=== PATIENT | female | born 1955 | race Caucasian/White ===

== ENCOUNTER 2021-09-18 16:41 | Emergency (ER) | payer MEDICARE, OTHER, SELFPAY ==
[2021-09-18] VITALS (21 sets, daily range): BP systolic 107–143; BP diastolic 56–102; PULSE 63–83; RESP 7–27; TEMP 36.4; O2SAT 92–100
--- NOTE | ~2021-09-18 | CT_ITS ---
EXAMINATION: CT brain wo con EXAM DATE: 09/18/2021 17:28 INDICATION: Fall, right sided head injury, pain . TECHNIQUE: Spiral CT of the head was performed without contrast. Axial, coronal and sagittal images were reviewed. The dose-length product (DLP) for this examination was 681.00 mGy-cm. The exposure w as tailored according to patient size, and iterative reconstruction (ASIR) was used as additional dos e reduction technique. There is no prior study for comparison. FINDINGS: There is no acute intraparenchymal hemorrhage. No evidence of intraparenchymal brain mass lesion. No evidence of acute infarction. Please note that initial head CT has limited sensitivity f or small or acute infarctions. There is mild periventricular and subcortical hypodensity, nonspecific but probably related to small vessel ischemic disease. There is mild prominence of the sulci and v entricles related to cerebral atrophy. There is intracranial carotid arteriosclerosis. There are n o extra-axial collections. There is no mass effect or midline shift. Patient has had bilateral ocul ar lens surgery. Soft tissue is unremarkable. The visualized sinuses and mastoid air cells are well aerated. IMPRESSION: 1. No acute intracranial findings. 2. Chronic age related findings. Reviewed, dictated and finalized at location G. TRICAL CONTINUITY INSPECTOR
--- NOTE | ~2021-09-18 | CT_ITS ---
EXAMINATION: CT facial & cervical spine wo EXAM DATE: 09/18/2021 17:28 INDICATION: Fall, head injury. TECHNIQUE: Spiral CT of the facial bones was acquired in the axial plane. Coronal reformatted images were also reviewed. Spiral CT of the cervical spine was performed without contrast. Axial images we re reviewed. Coronal and sagittal reformatted images were also reviewed. The dose-length product (DL P) for this examination was 520.31 mGy-cm. The exposure was tailored according to patient size, and iterative reconstruction (ASIR) was used as additional dose reduction technique. There is no prior s tudy for comparison. FINDINGS: FACIAL CT: There are no displaced acute nasal bone fractures. The mandible, sinuses and orbits are i ntact. The orbits, globes and extraocular muscles are unremarkable. The visualized sinuses and ma stoid air cells are well aerated. Right-sided zainab bullosa. Mild nasal septal deviation. CERVICAL CT: There is no evidence of acute cervical fracture. The odontoid process is intact. Pre-d ens space is normal. Prevertebral soft tissue is normal. There are no soft tissue abnormalities leeanna ntified. There is no disc space widening or traumatic vertebral body subluxation suspected. There i s moderate to severe disc disease from C4-7. A detailed level by level evaluation of spondylosis can be added as addendum if requested. IMPRESSION: 1. No acute facial or cervical fracture. 2. Moderate to severe cervical disc disease, mild to moderate arthropathy. Reviewed, dictated and finalized at location G. LER STEERER
--- NOTE | 2021-09-18 17:00 | PC.NURSE ---
Dr. Reid at bedside to assess patient.
--- NOTE | 2021-09-18 17:19 | ED.FALL ---
HPI - Fall General Chief Complaint: Fall Stated Complaint: Fall, Hit Face Time Seen by Provider: 09/18/21 16:47 Source: patient Mode of arrival: EMS Limitations: no limitations History of Present Illness HPI Narrative: Patient is a 66-year-old female complaining of head and facial pain after she fell while trying to lean over to roll picker her dog from her electric scooter. Patient cannot recall if she lost consciousness or not. Patient denies any neck, chest, abdomen, back, pelvis, hip or any extremity pain/injury. Patient denies any symptoms prior to the fall. Patient states that she currently takes Eliquis. Related Data Home Medications Medication Instructions Recorded Confirmed apixaban [Eliquis] 5 mg PO BID 09/18/21 09/18/21 aspirin 81 mg PO DAILY 09/18/21 09/18/21 atorvastatin 80 mg PO DAILY 09/18/21 09/18/21 furosemide [Lasix] 20 mg PO DAILY 09/18/21 09/18/21 gabapentin 300 mg PO TID 09/18/21 09/18/21 levothyroxine 200 mcg PO DAILY 09/18/21 09/18/21 metoprolol tartrate 25 mg PO DAILY 09/18/21 09/18/21 zcyipydtesvb-qrq-kfef-FA-vit K tablet PO 09/18/21 [Adults Multivitamin] spironolactone 12.5 mg PO DAILY 09/18/21 09/18/21 trazodone 100 mg PO HS 09/18/21 09/18/21 Allergies Allergy/AdvReac Type Severity Reaction Status Date / Time aspirin Allergy Unknown Verified 11/08/08 11:56 codeine Allergy Unknown Verified 11/08/08 11:56 erythromycin base Allergy Unknown Verified 11/08/08 11:56 Contrast Media Allergy Unknown Uncoded 07/26/03 15:14 Review of Systems Review of Systems: All systems reviewed & are unremarkable except as noted in HPI and below Constitutional: Constitutional: Denies body ache(s), Denies chills, Denies excessive sweating, Denies fatigue, Denies fever(s), Denies headache(s), Denies lethargy, Denies malaise, Denies weakness and Denies weight loss Eyes: Eyes: Denies blurry vision, Denies change in vision and Denies loss of vision ENT: Denies dizziness, Denies ear discharge, Denies headache(s), Denies lip swelling, Denies epistaxis, Denies nasal congestion, Denies neck pain, Denies throat swelling and Denies tongue swelling Cardiovascular: Cardiovascular: Denies chest pain, Denies chest pain at rest, Denies chest pain with activity, Denies diaphoresis, Denies rapid heart rate, Denies edema, Denies irregular heart rhythm, Denies lightheadedness, Denies palpitations, Denies dyspnea and Denies dyspnea on exertion Respiratory: Respiratory: Denies chest congestion, Denies cough, Denies hemoptysis, Denies dyspnea and Denies dyspnea on exertion Gastrointestinal: Gastrointestinal: Denies abdominal pain, Denies melena, Denies hematochezia, Denies diarrhea, Denies nausea, Denies vomiting and Denies hematemesis Musculoskeletal: Musculoskeletal: Denies abnormal gait, Denies deformity, Denies joint swelling, Denies limited range of motion, Denies neck pain and Denies numbness Neurologic: Denies Abnormal speech present, Denies abnormal gait, Denies confusion, Denies dizziness, Denies focal weakness, Denies loss of vision, Denies numbness, Denies Other visual disturbances, Denies Sensory deficit (Neuro) and Denies weakness Psychiatric: Psychiatric: Denies confusion, Denies depression, Denies auditory hallucinations, Denies homicidal ideation and Denies suicidal ideation Endocrine: Endocrine: Denies cold intolerance, Denies excessive sweating, Denies fatigue, Denies heat intolerance and Denies palpitations Hematologic/Lymphatic: Hematologic/Lymphatic: Denies easy bleeding and Denies easy bruising Allergic/Immunologic: Allergic/Immunologic: Denies lip swelling, Denies throat swelling and Denies tongue swelling PMFSH Comments Past medical history: Hypertension, COPD, atrial fib Family history: Hypertension Social history: Non-smoker no EtOH or drug use Exam Const: General: cooperative, healthy appearing, comfortable, no acute distress, well developed, alert and awake; No confusion Orientation/consciousness: oriente
--- NOTE | 2021-09-18 17:22 | PC.NURSE ---
Patient transported off unit to Radiology.
[2021-09-18] MEDS: HYDROcodone/acetaminophen (*CRX) 5-325 MG TABLET 1 TAB PO (18:37)
--- NOTE | 2021-09-18 19:13 | PC.NURSE ---
Patient report given to ZUNILDA Smallwood. All questions answered and care of patient transferred.
== END 2021-09-18 19:53 | disposition home or self-care (01) ==
PROVIDERS: Emergency Provider Emergency Medicine
DX: S09.90XA Unspecified injury of head, initial encounter (principal); S00.81XA Abrasion of other part of head, initial encounter; I10 Essential (primary) hypertension; I48.91 Unspecified atrial fibrillation; J44.9 Chronic obstructive pulmonary disease, unspecified; Z79.82 Long term (current) use of aspirin; Z79.01 Long term (current) use of anticoagulants; W05.2XXA Fall from non-moving motorized mobility scooter, initial encounter
CPT/HCPCS: 70450; 70486; 72125; 99284; A9270

== ENCOUNTER 2021-11-19 11:14 | Emergency (ER) | payer MEDICARE, OTHER, SELFPAY ==
--- NOTE | ~2021-11-19 | XR_ITS ---
EXAMINATION: XR ankle LT min 3V DATE: 11/19/2021 11:47 INDICATION: Left ankle pain. Fall. TECHNIQUE: 4 views of left ankle were obtained. COMPARISON: None. FINDINGS: There is a healed calcaneal osteotomy with plate and screw fixation. There are 2 suture anc hors in distal fibula. There is a plate and screws in first metatarsal. No acute fracture. There is m ild osteoarthritis of talonavicular joint. There is an osteochondral lesion of lateral talar dome. Th ere are enthesophytes at the posterior and plantar aspects of calcaneal tuberosity. Ankle soft tissue swelling is noted. IMPRESSION: 1. Polyarticular osteoarthritis. Reviewed, dictated and finalized at location A.
--- NOTE | ~2021-11-19 | XR_ITS ---
XR foot LT min 3V DATE: 11/19/2021 12:35 INDICATION: Fall 3 days ago. Swelling and tenderness along lateral metatarsal area TECHNIQUE: 4 views COMPARISON: None FINDINGS: Dorsal first metatarsal plate secured by anteroposteriorly directed screws. Status post calcaneal osteotomy with plate and 2 screws. Two anchor devices are noted in the lateral malleolus. Plantar and posterior calcaneal enthesopathy. Dorsal soft tissue swelling of the forefoot. No fracture or dislocation, periosteal reaction or bone destruction is detected. IMPRESSION: Postoperative changes Dorsal soft tissue swelling of forefoot No recent fracture or dislocation Reviewed, dictated and finalized at location A.
[2021-11-19 11:23] VITALS: BP 126/74; PULSE 80; RESP 16; TEMP 36.2; O2SAT 99
--- NOTE | 2021-11-19 12:19 | ED.LOWEXIN ---
HPI - Extremity Injury (Lower) General Chief Complaint: Extremity Injury, Lower Stated Complaint: pain in left foot Time Seen by Provider: 11/19/21 12:09 Source: patient Mode of arrival: ambulatory Limitations: no limitations History of Present Illness HPI Narrative: Patient is 66-year-old female who presents the ED with report of left ankle and foot pain. Patient reports she tripped and fell on Thursday, landing on her bilateral knees. She felt like her left ankle twisted backwards and flexed when she fell. She denies have any further pain in her knees, but does complain of pain in her left ankle and left foot. She has been able to ambulate but it is painful and she bears most weight on her right side. No numbness tingling, wounds, weakness. No other injuries. No back pain, hip pain. No prodromal symptoms prior to fall. Related Data Home Medications Medication Instructions Recorded Confirmed apixaban [Eliquis] 5 mg PO BID 09/18/21 09/18/21 aspirin 81 mg PO DAILY 09/18/21 09/18/21 atorvastatin 80 mg PO DAILY 09/18/21 09/18/21 furosemide [Lasix] 20 mg PO DAILY 09/18/21 09/18/21 gabapentin 300 mg PO TID 09/18/21 09/18/21 levothyroxine 200 mcg PO DAILY 09/18/21 09/18/21 metoprolol tartrate 25 mg PO DAILY 09/18/21 09/18/21 wlzljnmtfacz-xeb-xhwf-FA-vit K tablet PO 09/18/21 [Adults Multivitamin] spironolactone 12.5 mg PO DAILY 09/18/21 09/18/21 trazodone 100 mg PO HS 09/18/21 09/18/21 Allergies Allergy/AdvReac Type Severity Reaction Status Date / Time codeine Allergy Unknown Unknown Verified 11/19/21 11:41 erythromycin base Allergy Unknown Unknown Verified 11/19/21 11:41 hydrochlorothiazide Allergy Unknown Verified 11/19/21 11:41 Contrast Media Allergy Unknown Unknown Uncoded 11/19/21 11:41 Review of Systems Review of Systems: CONSTITUTIONAL: Denies fever. CARDIOVASCULAR: Denies chest pain. RESPIRATORY: Denies dyspnea. SKIN: Denies wounds. MUSCULOSKELETAL: Reports pain to L ankle/foot. Denies back pain, hip pain, knee pain. NEUROLOGIC: Denies numbness, tingling, or weakness. All systems reviewed & are unremarkable except as noted in HPI and below PMFSH Past Medical History Medical History (Updated 11/19/21 @ 12:59 by Abimbola Rankin PA-C) History of CVA (cerebrovascular accident) Hyperlipidemia Hypertension Hypothyroidism Surgical History Surgical History (Updated 11/19/21 @ 12:24 by Abimbola Rankin PA-C) History of foot surgery Social History Social History (Updated 11/19/21 @ 12:24 by Abimbola Rankin PA-C) Smoking status: Never smoker Exam Narrative: GENERAL: Well appearing, well-nourished, non-toxic, in no acute distress. HEAD: Normocephalic, atraumatic. RESPIRATORY: Airway patent, respirations nonlabored. Clear to auscultation bilaterally, no rales, rhonchi, wheezing. CARDIOVASCULAR: Regular rate and rhythm without murmurs, rubs, or gallops. Pedal pulses 2+ and equal bilaterally. MUSCULOSKELETAL: Moves all extremities. Limited range of motion of left ankle due to pain. Diffuse swelling to left ankle, most around lateral malleolus. Slight ecchymosis forming around inferior lateral malleolus. Tenderness to palpation of left fifth metatarsal lateral edge, lateral malleolus, and distal fibula. No gross deformities. No edema. SKIN: Warm, dry, normal color. No rashes. NEURO: A&O X3. Speech clear. Cranial nerves II-XII grossly intact. Steady gait. No ataxic movements. PSYCHIATRIC: Appropriate mood and affect. Normal interaction. Course Vital Signs Vital signs: Vital Signs Temperature 97.2 F L 11/19/21 11:23 Pulse Rate 80 11/19/21 11:23 Respiratory Rate 16 11/19/21 11:23 Blood Pressure 126/74 11/19/21 11:23 Pulse Oximetry 99 11/19/21 11:23 Temperature 97.2 F L 11/19/21 11:23 Pulse Rate 80 11/19/21 11:23 Respiratory Rate 16 11/19/21 11:23 Blood Pressure 126/74 11/19/21 11:23 Pulse Oximetry 99 11/19/21 11:23 MDM - Extremity Injury (Lower) MDM Narrativ
== END 2021-11-19 13:12 | disposition home or self-care (01) ==
PROVIDERS: Emergency Provider Emergency Medicine
DX: S93.402A Sprain of unspecified ligament of left ankle, initial encounter (principal); E78.5 Hyperlipidemia, unspecified; I10 Essential (primary) hypertension; E03.9 Hypothyroidism, unspecified; Z86.73 Personal history of transient ischemic attack (TIA), and cerebral infarction without residual deficits; Z79.899 Other long term (current) drug therapy; Z79.82 Long term (current) use of aspirin; Z79.01 Long term (current) use of anticoagulants; Z88.1 Allergy status to other antibiotic agents; Z91.041 Radiographic dye allergy status; Z88.5 Allergy status to narcotic agent; W18.30XA Fall on same level, unspecified, initial encounter
CPT/HCPCS: 73610; 73630; 99283

== ENCOUNTER 2022-03-03 09:43 | Emergency (ER) | payer MEDICARE, OTHER, SELFPAY ==
--- NOTE | ~2022-03-03 | XR_ITS ---
EXAMINATION: XR ribs RT 2V w CXR 2V DATE: 03/03/2022 10:31 INDICATION: Right chest pain. Fall. TECHNIQUE: Frontal and lateral views of the chest and 2 views on 3 radiographs of the right ribs were obtained. COMPARISON: Chest single view 03/03/2018 FINDINGS: CHEST TWO VIEWS: There is mild atelectasis at right lung base. No pleural effusion or pneumothorax. T he heart size is normal. There is a left chest wall pacer with leads in the right atrium and right ve ntricle. Surgical clips in the right upper quadrant are likely from cholecystectomy. RIGHT RIBS: There are fractures of right 8th-10th ribs. IMPRESSION: 1. Acute fractures of right 8th-10th ribs. Reviewed, dictated and finalized at location A.
--- NOTE | ~2022-03-03 | CT_ITS ---
EXAMINATION: CT BRAIN W/O DATE: 03/03/2022 10:17 INDICATION: Head injury. Patient on aliquots. TECHNIQUE: Computed tomography (CT) of the head was performed without intravenous contrast. The dose- length product was 681.00 mGy-cm. COMPARISON: No prior studies for comparison. FINDINGS: Normal brain parenchymal volume for age. Normal del angel-white differentiation. No acute intrac ranial hemorrhage, infarction, mass or mass effect. No ventriculomegaly or midline shift. Midline sagittal images demonstrate a normal corpus callosum, c raniovertebral junction and sella turcica. Basilar cisterns are patent. Paranasal sinuses and mastoids are pneumatized. No depressed skull fractures. There is mild intracran ial atherosclerosis. Small scalp hematoma at the left parietal vertex. IMPRESSION: 1. No acute intracranial abnormality. Reviewed, dictated and finalized at location A.
--- NOTE | ~2022-03-03 | CT_ITS ---
EXAMINATION: CT cervical spine wo con DATE: 03/03/2022 10:16 INDICATION: Neck pain. Fall. TECHNIQUE: Computed tomography (CT) of the cervical spine was performed without intravenous contrast. Automated exposure control and iterative reconstruction technique were employed. The dose-length pro duct was 429.28 mGy-cm. COMPARISON: CT cervical spine 09/18/2021 FINDINGS: There are small bilateral mastoid effusions. There is 3 degrees dextrocurvature of cervical spine. Vertebral body heights are normal. There is moderate to severely decreased disc height from C 4-C5 through C6-C7. The following disc levels are specifically discussed: C2-C3: There is no uncovertebral joint osteoarthritis. There is mild left facet joint osteoarthritis. There is no neural foraminal stenosis. There is no central canal stenosis. C3-C4: There is mild left uncovertebral joint osteoarthritis. There is mild bilateral facet joint ost eoarthritis. There is no neural foraminal stenosis. There is mild central canal stenosis. C4-C5: There is severe bilateral uncovertebral joint osteoarthritis. There is mild bilateral facet jevon int osteoarthritis. There is mild bilateral neural foraminal stenosis. There is mild central canal st enosis. C5-C6: There is severe bilateral uncovertebral joint osteoarthritis. There is mild right and moderate left facet joint osteoarthritis. There is mild bilateral neural foraminal stenosis. There is mild ce ntral canal stenosis. C6-C7: There is moderate right and severe left uncovertebral joint osteoarthritis. There is moderate bilateral facet joint osteoarthritis. There is mild bilateral neural foraminal stenosis. There is mil d central canal stenosis. C7-T1: There is no uncovertebral joint osteoarthritis. There is mild bilateral facet joint osteoarthr itis. There is no neural foraminal stenosis. There is no central canal stenosis. IMPRESSION: 1. No fracture. 2. Severe cervical spondylosis. Reviewed, dictated and finalized at location A.
[2022-03-03 09:50] VITALS: BP 151/62; PULSE 63; RESP 18; TEMP 36.4; O2SAT 96
--- NOTE | 2022-03-03 09:55 | ED.GENADULT ---
HPI - General Adult General Chief complaint: Fall Stated complaint: Fall, Hit head takes blood thinner Time Seen by Provider: 03/03/22 09:48 History of Present Illness HPI narrative: Patient is a 66-year-old female that presents the emergency department with chief complaint of fall. The patient reports she was walking up some steps approximately 3 total steps and was opening a door the patient states she lost her footing fell forward struck her head against the wall and hit the right side of her chest whenever she fell. Patient reports no loss of consciousness reports no focal neurological deficit the patient does report that she is on Eliquis and reports that initially she was feeling okay and then as the minutes have progressed since the fall she started having pain in the right side of her chest worse with inspiration patient states she also has pain with breathing. The patient states that she is concerned because she is on blood thinners and decided to come to the emergency department. The patient reports no pain in her extremities full range of motion all extremities denies abdominal pain. Related Data Home Medications Medication Instructions Recorded Confirmed apixaban 5 mg tablet (Eliquis) 5 mg PO BID 09/18/21 09/18/21 aspirin 81 mg tablet 81 mg PO DAILY 09/18/21 09/18/21 atorvastatin 80 mg tablet 80 mg PO DAILY 09/18/21 09/18/21 furosemide 20 mg tablet (Lasix) 20 mg PO DAILY 09/18/21 09/18/21 gabapentin 300 mg tablet 300 mg PO TID 09/18/21 09/18/21 levothyroxine 200 mcg capsule 200 mcg PO DAILY 09/18/21 09/18/21 metoprolol tartrate 25 mg tablet 25 mg PO DAILY 09/18/21 09/18/21 multivit with minerals-iron 18 tablet PO 09/18/21 mg-folic ac 400 mcg-vit K 25 mcg tablet (Adults Multivitamin) spironolactone 25 mg tablet 12.5 mg PO DAILY 09/18/21 09/18/21 trazodone 100 mg tablet 100 mg PO HS 09/18/21 09/18/21 Allergies Allergy/AdvReac Type Severity Reaction Status Date / Time codeine Allergy Unknown Unknown Verified 03/03/22 10:41 erythromycin base Allergy Unknown Unknown Verified 03/03/22 10:41 hydrochlorothiazide Allergy Unknown Verified 03/03/22 10:41 Contrast Media Allergy Unknown Unknown Uncoded 03/03/22 10:41 Review of Systems Review of Systems: A 10 system review of systems was completed on the patient and is negative except for what is stated in the HPI. Nursing and ancillary documentation was reviewed. PMFSH Past Medical History Medical History History of CVA (cerebrovascular accident) Hyperlipidemia Hypertension Hypothyroidism Surgical History Surgical History History of foot surgery Social History Social History Smoking status: Never smoker Exam Narrative: GENERAL: Well-appearing, well-nourished, and in no acute distress. HEAD: Normocephalic, atraumatic. EYES: PERRLA and EOMI. ENT: Nares clear, no rhinorrhea or epistaxis. Mucous membranes moist. NECK: Supple. CHEST: Clear to auscultation. No respiratory distress. Tenderness to palpation of the right chest wall HEART: Regular rate and rhythm. No murmur heard. Normal peripheral pulses. ABDOMEN: Soft, nontender, nondistended, normal active bowel sounds. EXTREMITIES: Normal range of motion. No edema. SKIN: Warm, dry, no rash. NEURO: No focal deficits. Alert and oriented x3. PSYCH: Normal mood and affect. Course Vital Signs Vital signs: Vital Signs Temperature 36.4 C 03/03/22 09:50 Pulse Rate 63 03/03/22 09:50 Respiratory Rate 18 03/03/22 09:50 Blood Pressure 151/62 H 03/03/22 09:50 Pulse Oximetry 96 03/03/22 09:50 Oxygen Delivery Room Air 03/03/22 09:50 Temperature 36.4 C 03/03/22 09:50 Pulse Rate 63 03/03/22 09:50 Respiratory Rate 18 03/03/22 09:50 Blood Pressure 151/62 H 03/03/22 09:50 Pulse Oximetry 96 08
[2022-03-03] MEDS: MORPHINE SULFATE (*CRX) 4 MG/ML INJ IV PUSH (10:44)
[2022-03-03 11:12] VITALS: O2SAT 95
[2022-03-03 11:15] VITALS: O2SAT 93
[2022-03-03 11:17] VITALS: BP 133/62; O2SAT 96
[2022-03-03 11:33] VITALS: O2SAT 96
== END 2022-03-03 11:50 | disposition home or self-care (01) ==
PROVIDERS: Emergency Provider Emergency Medicine
DX: S09.90XA Unspecified injury of head, initial encounter (principal); S22.41XA Multiple fractures of ribs, right side, initial encounter for closed fracture; I10 Essential (primary) hypertension; E03.9 Hypothyroidism, unspecified; Z86.73 Personal history of transient ischemic attack (TIA), and cerebral infarction without residual deficits; Z79.01 Long term (current) use of anticoagulants; Z79.82 Long term (current) use of aspirin; M47.812 Spondylosis without myelopathy or radiculopathy, cervical region; W10.9XXA Fall (on) (from) unspecified stairs and steps, initial encounter
CPT/HCPCS: 70450; 71046; 71100; 72125; 96374; 99284; J2270

== ENCOUNTER 2022-06-18 16:30 | Emergency (ER) | payer MEDICARE, OTHER, SELFPAY ==
--- NOTE | ~2022-06-18 | XR_ITS ---
EXAM: XR hand LT min 3V DATE: 06/18/2022 17:29 HISTORY: crush injury to 3rd proximal finger . COMPARISON: None available. FINDINGS: Normal mineralization. No fracture or dislocation. No lytic or blastic lesion. Joint space s are maintained. No erosion or periosteal change. Soft tissues within normal limits. IMPRESSION: No acute osseous finding in the left hand. Reviewed, dictated and finalized at location K. AD SUPERVISOR
[2022-06-18 16:43] VITALS: BP 109/81; PULSE 78; RESP 20; TEMP 37.2; O2SAT 97
--- NOTE | 2022-06-18 20:34 | ED.WOUNDLAC ---
HPI - Wound/Laceration General Chief Complaint: Wound/Laceration Stated Complaint: shut left hand in house door Time Seen by Provider: 06/18/22 19:45 Source: patient Mode of arrival: ambulatory Limitations: no limitations History of Present Illness HPI narrative: Patient is a 67-year-old female who presents to the ED with report of left hand injury. Patient reports she accidentally slammed her left hand in a heavy metal house door. She sustained a small laceration to her left third digit flexor surface. No other injuries. No numbness, tingling. Tetanus status up-to-date. Patient is on eliquis. Related Data Home Medications Medication Instructions Recorded Confirmed apixaban 5 mg tablet (Eliquis) 5 mg PO BID 09/18/21 09/18/21 aspirin 81 mg tablet 81 mg PO DAILY 09/18/21 09/18/21 atorvastatin 80 mg tablet 80 mg PO DAILY 09/18/21 09/18/21 furosemide 20 mg tablet (Lasix) 20 mg PO DAILY 09/18/21 09/18/21 gabapentin 300 mg tablet 300 mg PO TID 09/18/21 09/18/21 levothyroxine 200 mcg capsule 200 mcg PO DAILY 09/18/21 09/18/21 metoprolol tartrate 25 mg tablet 25 mg PO DAILY 09/18/21 09/18/21 multivit with minerals-iron 18 tablet PO 09/18/21 mg-folic ac 400 mcg-vit K 25 mcg tablet (Adults Multivitamin) spironolactone 25 mg tablet 12.5 mg PO DAILY 09/18/21 09/18/21 trazodone 100 mg tablet 100 mg PO HS 09/18/21 09/18/21 Allergies Allergy/AdvReac Type Severity Reaction Status Date / Time codeine Allergy Unknown Unknown Verified 03/03/22 10:41 erythromycin base Allergy Unknown Unknown Verified 03/03/22 10:41 hydrochlorothiazide Allergy Unknown Verified 03/03/22 10:41 Contrast Media Allergy Unknown Unknown Uncoded 03/03/22 10:41 Review of Systems Review of Systems: CONSTITUTIONAL: Denies fever, chills, or sweats. SKIN: Reports laceration to proximal left third digit flexor surface. NEUROLOGIC: Denies tingling, numbness, or weakness. All systems reviewed & are unremarkable except as noted in HPI and below PMFSH Past Medical History Medical History History of CVA (cerebrovascular accident) Hyperlipidemia Hypertension Hypothyroidism Surgical History Surgical History History of foot surgery Social History Social History Smoking status: Never smoker Exam Narrative: GENERAL: Well appearing, obese, non-toxic, in no acute distress. HEAD: Normocephalic, atraumatic. NECK: Supple. No adenopathy, no masses. RESPIRATORY: Airway patent, respirations nonlabored. CARDIOVASCULAR: Regular rate and rhythm without murmurs, rubs, or gallops. Radial pulses 2+ and equal bilaterally. MUSCULOSKELETAL: Moves all extremities. Strength/ROM intact without gross deformities. Minimal limited range of motion of left fingers due to swelling. Flexor tendons intact. No tenderness along flexor tendons. SKIN: Warm, dry, normal color. No rashes. Approximately 2 cm curvilinear laceration to flexor surface of left third digit, just proximal to PIP joint. NEURO: A&O X3. Speech clear. Cranial nerves II-XII grossly intact. Steady gait. No ataxic movements. PSYCHIATRIC: Appropriate mood and affect. Normal interaction. Course Vital Signs Vital signs: Vital Signs Temperature 98.9 F 06/18/22 16:43 Pulse Rate 78 06/18/22 16:43 Respiratory Rate 20 06/18/22 16:43 Blood Pressure 109/81 06/18/22 16:43 Pulse Oximetry 97 06/18/22 16:43 Temperature 98.9 F 06/18/22 16:43 Pulse Rate 78 06/18/22 16:43 Respiratory Rate 20 06/18/22 16:43 Blood Pressure 109/81 06/18/22 16:43 Pulse Oximetry 97 06/18/22 16:43 Procedures Laceration Laceration 1: Date: 06/18/22 Time: 21:35 Site: hand Side (If applicable): left (3rd digit) Size (cm): 2 Description: linear Depth: simple, single layer Local
== END 2022-06-18 22:19 | disposition home or self-care (01) ==
PROVIDERS: Emergency Provider Physician Assistant
DX: S61.213A Laceration without foreign body of left middle finger without damage to nail, initial encounter (principal); E78.5 Hyperlipidemia, unspecified; I10 Essential (primary) hypertension; E03.9 Hypothyroidism, unspecified; Z86.73 Personal history of transient ischemic attack (TIA), and cerebral infarction without residual deficits; Z79.82 Long term (current) use of aspirin; Z79.01 Long term (current) use of anticoagulants; W23.2XXA Caught, crushed, jammed or pinched between a moving and stationary object, initial encounter
CPT/HCPCS: 12001; 73130; 99283

== ENCOUNTER 2022-07-18 18:00 | Emergency (ER) | payer MEDICARE, OTHER, SELFPAY ==
[2022-07-18] VITALS (9 sets, daily range): BP systolic 97–136; BP diastolic 75–100; PULSE 87–98; RESP 14–23; TEMP 37.1; O2SAT 95–99
--- NOTE | ~2022-07-18 | XR_ITS ---
XR chest 2V DATE: 07/18/2022 18:54 INDICATION: Cough, shortness of breath, weakness. History of pneumonia. TECHNIQUE: AP and lateral views COMPARISON: 03/03/2022 AP chest FINDINGS: Normal heart size. Left-sided dual-lead pacemaker device with leads overlying right atrium and right ventricle. There is aortic calcification and mild unfolding. No hilar or mediastinal enlarg ement. There are multiple old healed right rib fractures including third, fourth, fifth, sixth, seventh, ei ghth rib fractures at least. Pulmonary infiltrate or consolidation, pleural effusion or pulmonary vascular congestion or pneumotho rax is detected. There is degenerative spurring of the thoracic spine. IMPRESSION: No active cardiac pulmonary disease Left bipolar pacemaker device Aortic atherosclerosis Multiple old healed right rib fractures Degenerative spurring of the thoracic spine Reviewed, dictated and finalized at location A. ON GRADER
[2022-07-18 19:48] LABS: Influenza A QL RT-PCR Negative (Negative); Influenza B QL RT-PCR Negative (Negative); SARS-CoV-2 RNA PCR Negative
--- NOTE | 2022-07-18 21:04 | ECG_ITS ---
Measurements Intervals [place] Rate: 86 P: 67 ME: 132 QRS: 58 QRSD: 79 T: 60 QT: 357 QTc: 429 Interpretive Statements SINUS RHYTHM RSR' V1 NONSPECIFIC ST ABNORMALITY BORDERLINE ECG NO PREVIOUS ECG AVAILABLE FOR COMPARISON Electronically Signed On 07-19-2022 13:31:53 [employer] by Artie Toledo M.D.
--- NOTE | 2022-07-18 21:06 | ED.URI ---
HPI - URI/Sore Throat General Chief Complaint: Upper Respiratory Infection Stated Complaint: chest pain Time Seen by Provider: 07/18/22 20:59 History of Present Illness HPI Narrative: 67-year-old female with a history of COPD on 2 L nasal cannula chronically, CAD status post stenting, hyperlipidemia, here for evaluation of productive cough of yellow sputum over the past 3 days. Cough is worse when she is lying flat. She states that this feels similar to previous episodes of pneumonia/COPD exacerbation. Patient also notes shortness of breath on exertion and at rest, which she states is chronic due to COPD but worse than usual over the past several days. Also notes chest pain with cough. denies leg swelling, sick contacts. She smokes 2 cigarettes/day. Related Data Home Medications Medication Instructions Recorded Confirmed apixaban 5 mg tablet (Eliquis) 5 mg PO BID 09/18/21 09/18/21 aspirin 81 mg tablet 81 mg PO DAILY 09/18/21 09/18/21 atorvastatin 80 mg tablet 80 mg PO DAILY 09/18/21 09/18/21 furosemide 20 mg tablet (Lasix) 20 mg PO DAILY 09/18/21 09/18/21 gabapentin 300 mg tablet 300 mg PO TID 09/18/21 09/18/21 levothyroxine 200 mcg capsule 200 mcg PO DAILY 09/18/21 09/18/21 metoprolol tartrate 25 mg tablet 25 mg PO DAILY 09/18/21 09/18/21 multivit with minerals-iron 18 tablet PO 09/18/21 mg-folic ac 400 mcg-vit K 25 mcg tablet (Adults Multivitamin) spironolactone 25 mg tablet 12.5 mg PO DAILY 09/18/21 09/18/21 trazodone 100 mg tablet 100 mg PO HS 09/18/21 09/18/21 Allergies Allergy/AdvReac Type Severity Reaction Status Date / Time codeine Allergy Unknown Unknown Verified 03/03/22 10:41 erythromycin base Allergy Unknown Unknown Verified 03/03/22 10:41 hydrochlorothiazide Allergy Unknown Verified 03/03/22 10:41 Contrast Media Allergy Unknown Unknown Uncoded 03/03/22 10:41 Review of Systems Review of Systems: Gen: Denies fevers or chills Eyes: Denies eye pain or visual change ENT: Denies congestion Respiratory: Reports shortness of breath and cough CV: Denies chest pain or palpitations GI: Denies abdominal pain nausea, emesis or diarrhea denies burning, urgency, frequency or hematuria Musculoskeletal: Denies back pain or muscle pain Neuro: Denies numbness, tingling, weakness or focal weakness Skin: Denies rash Except as documented, all other systems reviewed and negative [facility] Past Medical History Medical History History of CVA (cerebrovascular accident) Hyperlipidemia Hypertension Hypothyroidism Surgical History Surgical History History of foot surgery Social History Social History Smoking status: Never smoker Exam Narrative: APPEARANCE: Chronically ill appearing Head: Normocephalic and atraumatic. EYES: PERRLA/EOMI, conjunctivae clear NOSE: No nasal drainage EARS: External ear normal in appearance THROAT: Oropharynx is clear. Mucous membranes are moist. NECK: Supple. No adenopathy, no masses. RESPIRATORY: Coughing throughout exam, productive of yellow sputum. Diffuse expiratory wheezing throughout lung starks. Airway patent, respirations nonlabored. Clear to auscultation bilaterally, no rales, rhonchi CARDIOVASCULAR: Regular rate and rhythm without murmurs, rubs, or gallops. ABDOMINAL: Normoactive bowel sounds. Soft, nontender, nondistended. No rebound tenderness or guarding. MUSCULOSKELETAL: Extremities are warm and well-perfused. Moves all extremities well. No edema. NEURO: Normal speech. No focal neurologic deficits. SKIN: Skin is warm and dry. No rashes. PSYCHIATRIC: Normal affect/mood. Course Vital Signs Vital signs: Vital Signs Temperature 98.8 F 07/18/22 18:04 Pulse Rate 94 07/18/22 18:04 Respiratory Rate 16 07/18/22 18:04 Blood Pressure 123/86 07/18/22 18:04 Pulse Oximetry 95
[2022-07-18 21:24] LABS: Basophils Absolute Auto 0.1 K/mm3 (0.0-0.1); Basophils Percent Auto 0.5 % (0.2-1.2); Eosinophils Absolute Auto 0.1 K/mm3 (0-0.3); Eosinophils Percent Auto 0.5 % (0-4.4); Hematocrit 42.6 % (37.0-47.0); Hemoglobin 14.3 g/dL (12.0-15.0); Immature Granulocyte Absolute 0.05 K/mm3 (0.00-0.031); Immature Granulocyte Percent A 0.3 % (0-0.5); Lymphocytes Absolute Auto 3.75 K/mm3 (0.9-3.2); Lymphocytes Percent Auto 24.2 % (18.3-44.2); Mean Corpuscular HGB Conc 33.6 g/dl (32-36); Mean Corpuscular Hemoglobin 30.5 pg (26-34); Mean Corpuscular Volume 90.8 fl (80-100); Monocytes Absolute Auto 1.1 K/mm3 (0.1-0.6); Monocytes Percent Auto 7.3 % (2.6-8.5); Neutrophils Absolute Auto 10.4 K/mm3 (1.3-6.7); Neutrophils Percent Auto 67.2 % (45.5-73.1); Platelet Count Result 194 k/mm3 (150-375); Red Blood Count 4.69 M/mm3 (4.2-5.4); Red Cell Distribution Width 12.6 % (11.5-14.5); White Blood Count 15.5 K/mm3 (4.5-10.0)
[2022-07-18 21:42] LABS: Alanine Aminotransferase 21 U/L (6-35); Albumin Level 4.1 g/dL (3.5-5.1); Alkaline Phosphatase 146 U/L (38-126); Anion Gap 4 mmol/L (8-16); Aspartate Amino Transferase 25 U/L (14-36); Bilirubin,Total 0.8 mg/dL (0.2-1.3); Blood Urea Nitrogen 10 mg/dL (7-17); Calcium 8.8 mg/dL (8.4-10.2); Carbon Dioxide 31 mmol/L (22-30); Chloride 105 mmol/L (98-107); Estimated CRCL calculation 77 ml/min; Estimated Glomerular Filt Rate > 60; Glucose 95 mg/dL (65-110); Potassium 3.5 mmol/L (3.4-5.0); Sodium 140 mmol/L (137-145)
[2022-07-18 21:43] LABS: NT Pro B Type Natriuretic Pept 312 pg/mL (5-100)
[2022-07-18 21:54] LABS: Troponin I < 0.012 ng/mL (0.000-0.034)
[2022-07-18] MEDS: IPRATROPIUM BR 0.02% INH SOLN 0.5 MG/2.5 ML VIAL INHALATION (22:32)
[2022-07-18] MEDS: ALBUTEROL SULFATE NEB 2.5 MG/3 ML INH 5 MG INHALATION (22:33)
[2022-07-18] MEDS: predniSONE 20 MG TABLET 60 MG PO (22:52)
--- NOTE | 2022-07-18 23:09 | PC.NURSE ---
Report received from ZUNILDA Devries. Assumed care of patient at this time.
[2022-07-19] VITALS (26 sets, daily range): BP systolic 92–129; BP diastolic 54–64; PULSE 82–97; RESP 16–27; TEMP 36.7; O2SAT 94–100
[2022-07-19] MEDS: BENZONATATE 100 MG CAPSULE PO (00:05)
[2022-07-19] MEDS: MAGNESIUM SULF 2 GM/WATER 50ML 2 GM/50 ML BAG IVPB (00:34)
--- NOTE | 2022-07-19 01:41 | PC.NURSE ---
0139 Timothy from the [facility] calls for update and patient info, he states he will call back soon for physician to physician report and acceptance.
[2022-07-19] MEDS: ALBUTEROL SULFATE NEB 2.5 MG/3 ML INH 5 MG INHALATION (01:51)
[2022-07-19] MEDS: IPRATROPIUM BR 0.02% INH SOLN 0.5 MG/2.5 ML VIAL INHALATION (01:51)
--- NOTE | 2022-07-19 02:35 | PC.NURSE ---
Pt accepted at [address] Call [phone] with report
--- NOTE | 2022-07-19 02:41 | PC.NURSE ---
0240 Timothy from the calls to inform this nurse that the patient is going to [address] and phone number to call report is [phone].
--- NOTE | 2022-07-19 03:01 | PC.NURSE ---
Attempted to call report x2, was able to speak to vijay Mir RN and she stated we didn't know of a new patient coming, I will call my aluminum fabrication supervisor then call you back she then hung up the phone.
--- NOTE | 2022-07-19 03:34 | PC.NURSE ---
0319 ZUNILDA Stevenson from [facility] calls to get report, report given and room number is [id number] bed [id number].
== END 2022-07-19 04:32 ==
PROVIDERS: Emergency Medicine; Physician Assistant; Emergency Provider Emergency Medicine
DX: J44.1 Chronic obstructive pulmonary disease with (acute) exacerbation (principal); Z20.822 Contact with and (suspected) exposure to COVID-19; E78.5 Hyperlipidemia, unspecified; I10 Essential (primary) hypertension; E03.9 Hypothyroidism, unspecified; F17.210 Nicotine dependence, cigarettes, uncomplicated; Z86.73 Personal history of transient ischemic attack (TIA), and cerebral infarction without residual deficits; Z79.82 Long term (current) use of aspirin; Z79.01 Long term (current) use of anticoagulants
CPT/HCPCS: 36415; 71046; 80053; 83880; 84484; 85025; 87040; 87636; 93005; 94640; 96365; 96367; 96368; 99285; A9270; J0456; J0696; J3475; J7512